=== PATIENT | female | born 1990 | race Caucasian/White ===

== ENCOUNTER → 2023-09-20 | Outpatient (CLI) | payer MEDICAID, SELFPAY ==
[2023-09-26 13:07] LABS: HPV APTIMA, High Risk Negative (Negative)
== END | disposition home or self-care (01) ==
PROVIDERS: Visit Provider Obstetrics & Gynecology
DX: Z12.4 Encounter for screening for malignant neoplasm of cervix (principal)
CPT/HCPCS: 87624; 88175; G0145

== ENCOUNTER → 2023-10-06 | Outpatient (CLI) | payer MEDICAID, SELFPAY ==
--- NOTE | 2023-10-06 12:28 | RAD_ITS ---
INDICATION: confirm sterilization EXAMINATION/TECHNIQUE: Routine hysterosalpingography was performed. Total Fluoroscopic Time: 32 seconds AND number of Fluoroscopic Images: 3 OR Radiation dosage index: 6.73 mg COMPARISON: No relevant prior comparison study available FINDINGS: The uterine cavity contour is unremarkable. There are no filling defects or abnormalities. The fallopian tubes are partially visualized although there is no evidence of spill. Tubal ligation clips are seen bilaterally. RAD/Salpingogram IMPRESSION: Partial visualization of the fallopian tubes bilaterally without spill. Electronically Signed: Rubio Hopper MD at 13:27 EDT ,
--- NOTE | 2023-10-07 05:32 | OP.PCM_ITS ---
Operative Report Date of Procedure: 10/06/23 Preop diagnosis: abnormal imaging, possible sterilization failure Postop diagnosis: confirmed tubal blockage Procedure: Hysterosalpingogram Surgeon: Luana Ferris Implantable devices: None Complications: None Findings: Bilateral tubal blockage and normal uterine cavity Operative details: Patient was taken to the x-ray room and was placed on the x- ray table and was in the dorsal lithotomy position. Speculum was placed in the vagina and the cervix prepped with Betadine and the HSG catheter was easily introduced into the uterus and speculum removed. Radiologist was brought in and while pushing radiopaque dye into the uterus via the HSG catheter the radiologist took multiple images and views and confirmed bilateral tubal blockage seen. both flishie clips visualized also. No gross uterine filling defects or abnormalities were seen. All instruments removed from the vagina and the uterus without complication. Patient tolerated the procedure well. Multi Select Codes Urinary/Genital Urinary/Genital CPT Codes: 52249 HSG/SIS
== END | disposition home or self-care (01) ==
PROVIDERS: PCP Nurse Practitioner Primary Care; Referring Provider Obstetrics & Gynecology; Visit Provider Obstetrics & Gynecology
DX: Z30.2 Encounter for sterilization (principal)
CPT/HCPCS: 58340; 74740

== ENCOUNTER → 2023-12-23 | Outpatient (CLI) | payer MEDICAID, SELFPAY ==
--- NOTE | 2023-12-23 16:12 | US_ITS ---
EXAM: US PELVIS TRANSABDOMINAL AND TRANSVAGINAL, COMPLETE CLINICAL INDICATION: aub, dysmenorrhea TECHNIQUE: Transabdominal and transvaginal pelvic ultrasound was performed with grayscale and color Doppler imaging. Transvaginal imaging was used for better evaluation of the endometrium and adnexa. COMPARISON: No relevant prior studies available. FINDINGS: UTERUS/CERVIX: The uterus is retroflexed. There is no uterine mass. The uterus measures 7.7 x 4.7 x 4.2 cm. The endometrial stripe measures 0.4 cm in thickness. RIGHT OVARY: Unremarkable. Blood flow is present in the right ovary. The right ovary measures 2.3 x 1.2 x 1.4 cm. LEFT OVARY: Unremarkable. Blood flow is present in the left ovary. The left ovary measures 2.3 x 1.7 x 1.3 cm. FREE FLUID: None. BLADDER: Unremarkable as visualized. Wall is normal thickness for degree of distention. US/Pelvic w/ Transvaginal IMPRESSION: Normal pelvic ultrasound. Electronically Signed: Brant Gold MD at 7:48 EDT ,
== END | disposition home or self-care (01) ==
LOC: US 16:02
PROVIDERS: PCP Nurse Practitioner Primary Care; Referring Provider Obstetrics & Gynecology; Visit Provider Obstetrics & Gynecology
DX: N94.6 Dysmenorrhea, unspecified (principal); N93.9 Abnormal uterine and vaginal bleeding, unspecified
CPT/HCPCS: 76830; 76856